=== PATIENT | female | born 1990 | race Caucasian/White ===

== ENCOUNTER 2016-09-23 12:26 | Emergency (ER) | payer MEDICAID ==
[~2016-09-23 12:26] MED LIST: ACID CONTROL10 MG PO; ACID REDUCER20 MG PO; ADVAIR 2501 DISK W/D IH; ADVAIR HFA 115-12 GM IH; ALBUTEROL SULF8.5 GM IH; ALBUTEROL17 GM INH; ALEVE220 M1 PO; ALEVE220 M2 PO; AMOXIL500 M PO; ANTIBIOTIC; BACTRIM DS1 TA1 PO; BENADRYL; BENADRYL25 MG PO; CIPRO XR500 MG PO; CIPRO500 MG PO; CLARITIN10 M2 PO; COMPAZINE10 M PO; DEPO-PROVER150 MG/ML IM; DEXAMETHASONE4 MG PO; EC-NAPROSYN500 MG PO; FAMOTIDINE20 M1 PO; FLEXERIL10 MG PO; HYDROCODON-ACE1 EAC7 PO; IBUPROFEN PO; KEFLEX500 MG PO; LEVAQUIN500 MG PO; LORAZEPAM0.5 MG PO; METROGEL-VAGINA70 GM VG; MOTRIN200 MG/TA1 PO; NABUMETONE750 MG PO; NORCO 5/325 TAB1 TAB PO; NORCO 5/3251 TAB PO; OXYCODONE/APAP PO; PEPCID20 MG PO; PERCOCET 5/3251 TAB PO; PHENERGAN25 MG PO; PYRIDIUM200 MG PO; RELAFEN750 MG PO; SEPTRA DS TABLE1 TAB PO; VENTOLIN HFA18 GM IH; ZITHROMAX250MG Z-PAK PO; ZOFRAN ODT4 MG/UDTAB PO
[2016-09-23] MEDS ORDERED: BENADRYL25 M3 PO (14:06)
[2016-09-23] MEDS ORDERED: PRENATAL-U CAPS1 CAP PO (14:06)
[2016-09-23] MEDS ORDERED: PROAIR HFA8.5 GM INH (14:08)
[2016-09-23] MEDS ORDERED: QVAR8.7 G1 INH (14:08)
[2017-01-16] MEDS ORDERED: AUGMENTIN 500-1 EAC2 PO (16:23)
[2017-02-03] MEDS ORDERED: VISTARIL25 M1 (20:36)
[2017-02-26] MEDS ORDERED: IBUPROFEN800 M1 PO (01:52)
[2017-02-26] MEDS ORDERED: NORCO 5-325 TA1 EACH PO (01:57)
== END 2016-09-23 15:28 ==
LOC: EDMED 12:26
DX: O99.512 Diseases of the respiratory system complicating pregnancy, second trimester (principal); O99.332 Smoking (tobacco) complicating pregnancy, second trimester; J06.9 Acute upper respiratory infection, unspecified; J45.909 Unspecified asthma, uncomplicated; F17.200 Nicotine dependence, unspecified, uncomplicated; Z3A.17 17 weeks gestation of pregnancy

== ENCOUNTER 2016-10-22 14:34 | Observation (INO) | payer MEDICAID ==
[~2016-10-22 14:34] MED LIST changes: +BENADRYL25 M3 PO; +PRENATAL-U CAPS1 CAP PO; +PROAIR HFA8.5 GM INH; +QVAR8.7 G1 INH
[2016-10-22 14:53] LABS: URINE BILIRUBIN NEGATIVE (NEG); URINE BLOOD SMALL (NEG); URINE GLUCOSE (UA) NEGATIVE (NEG); URINE KETONE NEGATIVE (NEG); URINE LEUKOCYTE ESTERASE NEGATIVE (NEG); URINE NITRITE NEGATIVE (NEG); URINE PROTEIN NEGATIVE (NEG); URINE SPECIFIC GRAVITY 1.015 (1.003-1.030)
[2016-10-22 14:58] LABS: URINE APPEARANCE HAZY; URINE COLOR YELLOW
[2016-10-22 15:11] LABS: URINE EPITHELIAL CELLS 0-3 /[HPF] (0-10); URINE RBC 0-1 /[HPF] (0-5); URINE WBC 0 /[HPF] (0-5)
[2016-10-22 15:12] LABS: URINE AMORPHOUS 1+
[2017-01-16] MEDS ORDERED: AUGMENTIN 500-1 EAC2 PO (16:23)
[2017-02-03] MEDS ORDERED: VISTARIL25 M1 (20:36)
[2017-02-26] MEDS ORDERED: IBUPROFEN800 M1 PO (01:52)
[2017-02-26] MEDS ORDERED: NORCO 5-325 TA1 EACH PO (01:57)
== END 2016-10-22 16:15 ==
LOC: LDR 14:34
PROVIDERS: ADMIT Family Medicine
DX: O99.89 Other specified diseases and conditions complicating pregnancy, childbirth and the puerperium (principal); R10.9 Unspecified abdominal pain; Z3A.21 21 weeks gestation of pregnancy; Z79.899 Other long term (current) drug therapy

== ENCOUNTER 2016-11-15 08:14 | Observation (INO) | payer MEDICAID ==
[2016-11-15] MEDS ORDERED: ASPIRIN81 M1 PO (08:55)
[2016-11-15 10:07] LABS: BASO % 0.1 % (0-2); EOS % 1.7 % (0-7); EOSINOPHIL ABSOLUTE COUNT 0.1 tho/cmm (0.0-0.7); HCT-HEMATOCRIT 32.6 % (34.0-49.0); HGB-HEMOGLOBIN 11.2 gm/dl (12.0-15.5); IMMATURE GRANULOCYTES ABSOLUTE 0.02 tho/cmm (0-0.03); IMMATURE GRANULOCYTES PERCENT 0.3 % (0-0.3); LYMPH ABSOLUTE COUNT 1.5 tho/cmm (0.8-4.5); MCH (MEAN CORPUSCULAR HGB) 31.7 pg (28.0-32.0); MCHC MEAN CORPUSCULAR HGB CONC 34.4 % (32.0-36.0); MCV (MEAN CELL VOLUME) 92.4 fl (82.0-96.0); MONO % 6.1 % (0-12); MONOCYTE ABSOLUTE COUNT 0.5 tho/cmm (0.0-1.2); NEUTROPHIL ABSOLUTE COUNT 5.4 tho/cmm (1.6-8.0); NEUTROPHIL-AUTOMATED 5.4 tho/cmm (1.6-8.0); NEUTROPHILS % 71.8 % (40-80); PLATELET COUNT 277 tho/cmm (150-450); RED BLOOD COUNT 3.53 mil/cmm (4.00-5.20); RED CELL DISTRIBUTION WIDTH 14.1 % (12.4-16.4); WHITE BLOOD COUNT 7.5 tho/cmm (4.0-10.0)
[2017-01-16] MEDS ORDERED: AUGMENTIN 500-1 EAC2 PO (16:23)
[2017-02-03] MEDS ORDERED: VISTARIL25 M1 (20:36)
[2017-02-26] MEDS ORDERED: IBUPROFEN800 M1 PO (01:52)
[2017-02-26] MEDS ORDERED: NORCO 5-325 TA1 EACH PO (01:57)
== END 2016-11-15 16:15 ==
LOC: LDR 08:14
PROVIDERS: Family Medicine; ADMIT Family Medicine
DX: O9A.212 Injury, poisoning and certain other consequences of external causes complicating pregnancy, second trimester (principal); Z3A.24 24 weeks gestation of pregnancy; Z79.82 Long term (current) use of aspirin; Z79.899 Other long term (current) drug therapy; Z91.040 Latex allergy status; Z91.048 Other nonmedicinal substance allergy status; Z90.49 Acquired absence of other specified parts of digestive tract; Z98.890 Other specified postprocedural states; W01.0XXA Fall on same level from slipping, tripping and stumbling without subsequent striking against object, initial encounter; Y92.091 Bathroom in other non-institutional residence as the place of occurrence of the external cause
CPT/HCPCS: G0378; G0379

== ENCOUNTER 2016-11-17 11:48 | Observation (INO) | payer MEDICAID ==
[~2016-11-17 11:48] MED LIST changes: +ASPIRIN81 M1 PO
[2017-01-16] MEDS ORDERED: AUGMENTIN 500-1 EAC2 PO (16:23)
[2017-02-03] MEDS ORDERED: VISTARIL25 M1 (20:36)
[2017-02-26] MEDS ORDERED: IBUPROFEN800 M1 PO (01:52)
[2017-02-26] MEDS ORDERED: NORCO 5-325 TA1 EACH PO (01:57)
== END 2016-11-17 13:39 ==
LOC: LDR 11:48
PROVIDERS: ADMIT Family Medicine
DX: O9A.212 Injury, poisoning and certain other consequences of external causes complicating pregnancy, second trimester (principal); Z3A.25 25 weeks gestation of pregnancy; Z91.040 Latex allergy status; Z91.048 Other nonmedicinal substance allergy status; Z90.49 Acquired absence of other specified parts of digestive tract; Z98.890 Other specified postprocedural states